=== PATIENT | female | born 1940 ===

== ENCOUNTER 2017-09-28 07:22 | Day surgery (SDC) | payer MEDICARE ==
[2017-09-28] MEDS ORDERED: Lactated Ringer's 1,000 ML IV ONE (08:02)
[2017-09-28] MEDS ORDERED: Propofol 10 mg/ml Inj (20 ML) ONE (08:48)
[2017-09-28 09:51] VITALS: TEMP 96.8; O2SAT 95
[2017-09-28 10:03] VITALS: BP 100/60; PULSE 52; RESP 17
== END 2017-09-28 10:17 | disposition home or self-care (01) ==
LOC: H.ENDO 07:22
PROVIDERS: ATTEND Internal Medicine Gastroenterology
DX: Z12.11 Encounter for screening for malignant neoplasm of colon (principal); E78.5 Hyperlipidemia, unspecified; D12.4 Benign neoplasm of descending colon; K57.30 Diverticulosis of large intestine without perforation or abscess without bleeding; K44.9 Diaphragmatic hernia without obstruction or gangrene; K31.89 Other diseases of stomach and duodenum; K29.70 Gastritis, unspecified, without bleeding; K30 Functional dyspepsia
CPT/HCPCS: 43239; 45380; 45381; 45385; 88305; 88342; J2001; J2704; J7120